=== PATIENT | female | born 1945 | race Caucasian/White ===

== ENCOUNTER 2017-04-17 09:24 | Outpatient (CLI) | payer MEDICARE ==
--- NOTE | 2017-04-21 13:06 | Mammography Report ---
DATE OF SERVICE: 04/18/2017 DIGITAL BILATERAL SCREENING MAMMOGRAM: 04/18/2017 CLINICAL INDICATION: A 71-year-old for screening. COMPARISON: 11/2013, 11/2012, 03/2011, 03/2009. The breasts again demonstrate heterogeneously dense fibroglandular parenchyma bilaterally. Coarse, t ypically benign calcifications are present. In the left upper outer central breast, there is a possible devel oping density. Further evaluation with spot compression views and possible ultrasound is recommended. No mammograp hically suspicious findings are appreciated in the right breast. IMPRESSION: Incomplete examination. RECOMMENDATIONS: Additional evaluation of the left breast as above. BIRADS category: 0, incomplete. STANDARD QUALIFYING STATEMENTS 1. This examination was reviewed with the aid of Computed-Aided Detection (CAD). 2. A negative or benign imaging report should not delay biopsy if clinically suspicious findings are present. Consider surgical consultation if warranted. More than 5% of cancers are not identified by imaging. 3. Dense breasts may obscure an underlying neoplasm. TD: 04/18/2017 19:30
== END 2017-04-17 09:25 | disposition home or self-care (01) ==
LOC: DI.S 09:24
PROVIDERS: ATTEND Physician Assistant
DX: Z12.31 Encounter for screening mammogram for malignant neoplasm of breast (principal); R92.8 Other abnormal and inconclusive findings on diagnostic imaging of breast
CPT/HCPCS: 77067

== ENCOUNTER 2017-04-17 09:25 | Outpatient (CLI) | payer MEDICARE ==
--- NOTE | 2017-04-20 13:49 | XRAY Report ---
THREE-VIEW LEFT FOOT: 04/17/2017 CLINICAL INDICATION: Pain. FINDINGS: AP, lateral, and oblique views of the left foot demonstrate moderate osteoarthritis of the first metatarsophalangeal joint. There is no evidence of acute fracture or dislocation. No radiopaque foreign body is seen in the soft tissues. IMPRESSION: MODERATE OSTEOARTHRITIS. TD: 04/17/2017 15:39 [facility]
== END 2017-04-17 09:26 | disposition home or self-care (01) ==
LOC: DI.S 09:25
PROVIDERS: ATTEND Physician Assistant
DX: M79.672 Pain in left foot (principal)

== ENCOUNTER 2017-05-09 09:32 | Outpatient (CLI) | payer MEDICARE ==
[2017-05-09 20:10] LABS: THYROID STIMULATING HORMONE 2.3 uIU/mL (0.34-5.60)
[2017-05-09 20:12] LABS: FREE T4 (FREE THYROXINE) 1.21 ng/dL (0.58-1.64)
== END 2017-05-09 09:33 | disposition home or self-care (01) ==
LOC: LAB.F 09:32
PROVIDERS: ATTEND Internal Medicine Endocrinology, Diabetes & Metabolism
DX: E03.8 Other specified hypothyroidism (principal)
CPT/HCPCS: 36415; 84439; 84443; 84481

== ENCOUNTER 2017-05-19 08:55 | Outpatient (CLI) | payer MEDICARE ==
--- NOTE | 2017-05-19 16:35 | Mammography Report ---
DATE OF SERVICE: 05/19/2017 DIGITAL DIAGNOSTIC LEFT MAMMOGRAM: 05/19/2017 CLINICAL INDICATION: Possible developing density on screening examination. TECHNIQUE: Left true lateral and spot compression views. COMPARISON: 04/17/2017, 12/11/2013, 12/04/2012, 04/06/2011, 03/11/2009. FINDINGS: The left breast again demonstrates heterogeneously dense fibroglandular parenchyma. Coarse and punctate, typically benign calcifications are present. The questioned developing density does not persist on additional compression. No underlying mass lesion or architectural distortion is identified. IMPRESSION: BENIGN FINDINGS. RECOMMENDATION: ROUTINE ANNUAL SCREENING UNLESS OTHERWISE CLINICALLY INDICATED. BIRADS CATEGORY 2-BENIGN FINDINGS. STANDARD QUALIFYING STATEMENTS: 1. This examination was reviewed with the aid of Computer-Aided Detection (CAD). 2. A negative or benign imaging report should not delay biopsy if clinically suspicious findings are present. Consider surgical consultation if warranted. More than 5% of cancers are not identified by imaging. 3. Dense breasts may obscure an underlying neoplasm. TD: 05/19/2017 17:34
== END 2017-05-19 08:56 | disposition home or self-care (01) ==
LOC: DI 08:55
PROVIDERS: ATTEND Physician Assistant
DX: R92.8 Other abnormal and inconclusive findings on diagnostic imaging of breast (principal)

== ENCOUNTER 2017-11-20 18:40 | Outpatient (CLI) | payer MEDICARE ==
--- NOTE | 2017-11-21 08:26 | XRAY Report ---
Procedure Date: 11/20/2017 Accession Number: [id number] / [id number] Procedure: XR - Knee 3 View RT CPT Code: FULL RESULT: EXAM: Knee 3 View RT DATE: 11/20/2017 6:50 PM CLINICAL HISTORY: PAIN,SWELLING HX VEIN STRIPPING SWELLING COMPARISON: None. TECHNIQUE: 3 views. FINDINGS: Bones: Marginal osteophytosis of the superior patella and distal femur laterally. No fractures or bone lesions. Joints: Chondrocalcinosis of the lateral femoral tibial compartment. No effusion. No subluxations. Soft Tissues: Normal. No soft tissue swelling. IMPRESSION: Mild degenerative changes. [facility]
--- NOTE | 2017-11-21 13:37 | Ultrasound Report ---
Procedure Date: 11/20/2017 Accession Number: [id number] / [id number] Procedure: US - Duplex Ext Veins Right CPT Code: FULL RESULT: EXAM: RIGHT LOWER EXTREMITY VENOUS ULTRASOUND EXAM DATE: 11/20/2017 07:46 PM. CLINICAL HISTORY: Pain, swelling. HX VEIN STRIPPING. COMPARISON: None. TECHNIQUE: Real-time sonographic vascular imaging was performed by the gauge maker apprentice through the lower extremity utilizing both color-flow and Doppler spectral analysis. Multiple customer service representative teller static images were saved for review. FINDINGS: Common Femoral Vein (CFV): Normal. CFV-GSV Junction: Normal. Profunda Femoral Vein (PFV): Normal. Femoral Vein (FV) Prox: Normal. Femoral Vein (FV) Mid: Normal. Femoral Vein (FV) Dist: Normal. Popliteal Vein: Normal. Posterior Tibial Veins: Normal. Peroneal Veins: Normal. Contralateral Side CFV: Normal. Other: Posteromedial fluid collection, probably from Watt cyst measuring 3.9 x 1.0 x 1.2 cm. IMPRESSION: 1. No evidence for deep venous thrombosis. 2. Watt's cyst. RADIA
--- NOTE | 2017-11-21 17:06 | Ultrasound Report ---
Procedure Date: 11/20/2017 Accession Number: [id number] / [id number] Procedure: US - Duplex Lwr Ext Arterial RT CPT Code: FULL RESULT: EXAM: RIGHT LOWER EXTREMITY ARTERIAL DOPPLER ULTRASOUND EXAM DATE: 11/20/2017 08:03 PM. CLINICAL HISTORY: Pain, swelling. History of vein stripping. COMPARISON: None. TECHNIQUE: Real-time sonographic vascular imaging was performed by the ladies' hat trimmer, utilizing color-flow, Doppler flow, and spectral analysis. Multiple front office representative static images were saved for review. FINDINGS: Right Lower Extremity: CONSULTING UTILITY FORESTER: PSV 113.9 cm/sec. Triphasic waveform. PSFA: PSV 115.8 cm/sec. Biphasic waveform. MSFA: PSV 66.5 cm/sec. Biphasic waveform. DSFA: PSV 54.5 cm/sec. Triphasic waveform. PFA: PSV 64.4 cm/sec. Biphasic waveform. POP: PSV 41.5 cm/sec. Biphasic waveform. YISSEL: PSV 71.4 cm/sec. Biphasic waveform. FUEL CELL TEST ENGINEER: PSV 69.3 cm/sec. Biphasic waveform. JESSI: PSV 32.4 cm/sec. Biphasic waveform. DPA: PSV 57.5 cm/sec. Biphasic waveform. IMPRESSION: 1. No evidence for hemodynamically significant arterial stenosis within the right lower extremity. RADIA
== END 2017-11-20 18:41 | disposition home or self-care (01) ==
LOC: DI 18:40
PROVIDERS: ATTEND Physician Assistant
DX: M25.561 Pain in right knee (principal); M71.21 Synovial cyst of popliteal space [Baker], right knee; M11.261 Other chondrocalcinosis, right knee

== ENCOUNTER 2017-12-04 20:14 | Outpatient (CLI) | payer MEDICARE ==
--- NOTE | 2017-12-04 21:38 | Ultrasound Report ---
Procedure Date: 12/04/2017 Accession Number: [id number] / [id number] Procedure: US - Duplex Ext Veins Right CPT Code: FULL RESULT: EXAM: RIGHT LOWER EXTREMITY VENOUS ULTRASOUND. EXAM DATE: 12/04/2017 08:50 PM. CLINICAL HISTORY: Fell through deck, right leg/calf hematoma pain. COMPARISON: 11/20/2017. TECHNIQUE: Real-time sonographic vascular imaging was performed by the email marketing manager through the lower extremity utilizing both color-flow and Doppler spectral analysis. Multiple employer relations representative static images were saved for review. FINDINGS: Common Femoral Vein (CFV): Normal. CFV-GSV Junction: Normal. Profunda Femoral Vein (PFV): Normal. Femoral Vein (FV) Prox: Normal. Femoral Vein (FV) Mid: Normal. Femoral Vein (FV) Dist: Normal. Popliteal Vein: Normal. Posterior Tibial Veins: Normal. Peroneal Veins: Normal. Contralateral Side CFV: Normal. Other: Anechoic right popliteal fossa cyst measures 3.8 x 0.8 x 1.2 cm. Complex fluid and debris containing collection in the proximal medial right calf region measuring 6 x 1.2 x 3.2 cm. No septations are noted. No vascular components or solid mass. IMPRESSION: 1. Small popliteal fossa cyst measuring 3.8 x 0.8 x 1.2 cm. 2. Complex right calf region collection containing septations and debris. No vascular components. Given the recent trauma, imaging findings are most compatible with a hematoma. If lesion increases in size or becomes more painful, recommend contrast enhanced MRI. 3. No evidence for deep venous thrombosis. RADIA
== END 2017-12-04 20:15 | disposition home or self-care (01) ==
LOC: DI 20:14
PROVIDERS: ATTEND Nurse Practitioner Family
DX: M79.604 Pain in right leg (principal); S80.11XA Contusion of right lower leg, initial encounter

== ENCOUNTER 2020-03-21 10:44 | Outpatient (CLI) | payer MEDICARE ==
--- NOTE | 2020-03-21 11:19 | XRAY Report ---
PROCEDURE: Chest 2 View X-Ray INDICATIONS: CHRONIC COUGH TECHNIQUE: 2 view(s) of the chest. COMPARISON: No prior chest radiograph are available for review on PACS system at the time of this di ctation. Correlation is made with left shoulder plain films, 03/01/2018. Correlation is also made with prior left shoulder show a CT examination, 02/11/2018. FINDINGS: Surgical changes and devices: Left proximal humeral hardware is seen. Along the medial soft tissues o f the left upper arm, there is a metallic pin seen, which appears previously embedded within the bone on the 2018 radiograph. Lungs and pleura: No pleural effusions or pneumothorax. Lungs are clear, yet hyperexpanded. Mediastinum: The aorta is prominent and tortuous. The cardiac contours are within normal limits. Bones and chest wall: No suspicious bony abnormalities. There is a healing left proximal humerus fra cture. Age-appropriate degenerative changes are seen. Minimal dextroconvex scoliotic curvature is se en. Soft tissues appear unremarkable. IMPRESSION: Hyperexpanded lungs are seen, without an acute cardiopulmonary abnormality seen. Postoperative change with a healing fracture involving the left proximal humerus. There is a postoper ative pin seen embedded within the soft tissues involving the medial upper arm. Reviewed by: Trey Gallardo MD on 03/21/2020 10:18 AM [facility] Approved by: Trey Gallardo MD on 03/21/2020 10:18 AM [facility] Station ID: [id number]
== END 2020-03-21 10:45 | disposition home or self-care (01) ==
LOC: DI.S 10:44
PROVIDERS: ATTEND Internal Medicine
DX: R05 Cough (principal)
CPT/HCPCS: 71046

== ENCOUNTER 2021-10-10 08:00 | Outpatient (CLI) | payer MEDICARE ==
--- NOTE | 2021-10-10 14:09 | XRAY Report ---
PROCEDURE: Abdomen 1 View X-Ray INDICATIONS: ACUTE ABDOMINAL PAIN TECHNIQUE: One view of the abdomen acquired. COMPARISON: None. FINDINGS: Surgical changes and devices: None. Bowel: Bowel gas pattern is nonobstructive. Large amount of fecal matter throughout the colon is see n. No gross pneumoperitoneum. Soft tissues: No suspicious abdominal calcifications. Visualized solid organ contours appear normal in size. Bones: No suspicious bony lesions. IMPRESSION: Moderate constipation. No gross free air. Reviewed by: Jimmie Santos MD on 10/10/2021 2:07 PM PDT Approved by: Jimmie Santos MD on 10/10/2021 2:07 PM PDT Station ID: [id number]
== END 2021-10-10 23:59 | disposition home or self-care (01) ==
LOC: DI.S 08:00
PROVIDERS: ATTEND Physician Assistant Medical
DX: R10.9 Unspecified abdominal pain (principal); K59.00 Constipation, unspecified